=== PATIENT | male | born 1975 | race Caucasian/White ===

== ENCOUNTER 2022-03-19 11:14 | Outpatient (CLI) | payer OTHER ==
[2022-03-19 13:39] LABS: #Eosinphils 0.1 10x3/uL (0.0-0.5); #Monocytes 0.5 10x3/uL (0.0-1.1); #Neutrophils 2.3 10x3/uL (1.5-8.4); %Basophils 0.5 % (0.0-2.0); %Eosinophils 2.3 % (0.0-6.0); %Lymphocytes 28.5 % (18.0-47.0); %Monocytes 11.4 % (0.0-10.0); Hemoglobin 13.9 g/dL (13.5-17.5); Mean Corpuscular HGB CONC 34.8 g/dL (32.0-36.0); Mean Corpuscular Hemoglobin 31.5 pg (27.0-33.0); Mean Corpuscular Volume 90.7 fl (81.2-95.1); Mean Platelet Volume 10.1 fl (7.4-10.4); Platelet Count 299 10x3/uL (150-450); RBC Distribution Width 12.4 % (11.5-14.5); Red Blood Cell (RBC) Count 4.41 10x6/uL (4.32-5.72)
[2022-03-19 14:14] LABS: Anion Gap 12 mmol/L (10-20); BUN (Urea Nitrogen) 10 mg/dL (8.9-20.6); Calc. Creatinine Clearance 0 mL/min (70-130); Carbon Dioxide 28 mmol/L (22-29); Chloride 105 mmol/L (98-107); Estimated GFR 107; Glucose 89 mg/dL (70-105); Potassium 4.2 mmol/L (3.5-5.1); Sodium 141 mmol/L (136-145)
== END 2022-03-19 11:15 | disposition home or self-care (01) ==
LOC: LABBT 11:14
PROVIDERS: ATTEND Orthopaedic Surgery
DX: Z01.812 Encounter for preprocedural laboratory examination (principal); T84.89XA Other specified complication of internal orthopedic prosthetic devices, implants and grafts, initial encounter; S83.242A Other tear of medial meniscus, current injury, left knee, initial encounter
CPT/HCPCS: 80048; 85025

== ENCOUNTER 2022-03-24 06:44 | Day surgery (SDC) | payer OTHER ==
[2022-03-23 08:53] VITALS: BMI 28.9
[2022-03-24] MEDS ORDERED: PROPOFOL 20 ML ONE (07:52)
[2022-03-24] MEDS ORDERED: Bupivacaine PF 0.5% 30 ML VIAL ONE (07:52)
[2022-03-24] MEDS ORDERED: Lidocaine 2% PF 5 ML VIAL ONE (07:53)
[2022-03-24] MEDS ORDERED: Fentanyl 100 MCG/2 ML VIAL ONE (08:58)
[2022-03-24] MEDS ORDERED: CEFAZOLIN 2 GM VIAL ONE (09:14)
[2022-03-24] MEDS ORDERED: Sodium Chloride 0.9% 100 ML ONE (09:14)
[2022-03-24] MEDS ORDERED: Lidocaine 1% PF 5 ML VIAL ONE (09:29)
[2022-03-24] MEDS ORDERED: Ondansetron PF 4 MG/2 ML Vial ONE (09:29)
[2022-03-24] MEDS ORDERED: Dexamethasone 20 MG/5 ML VIAL ONE (09:29)
[2022-03-24] MEDS ORDERED: PROPOFOL 200 MG/20 ML VIAL ONE (09:29)
== END 2022-03-24 12:30 | disposition home or self-care (01) ==
LOC: SDC 06:44
PROVIDERS: ATTEND Orthopaedic Surgery
DX: S83.242A Other tear of medial meniscus, current injury, left knee, initial encounter (principal); S83.272A Complex tear of lateral meniscus, current injury, left knee, initial encounter; M23.42 Loose body in knee, left knee; M23.8X2 Other internal derangements of left knee; G89.29 Other chronic pain; M54.50 Low back pain, unspecified; Z86.718 Personal history of other venous thrombosis and embolism; Z87.891 Personal history of nicotine dependence; Z88.4 Allergy status to anesthetic agent; Z98.890 Other specified postprocedural states
CPT/HCPCS: J1100; J2001; J2405; J2704; J3010; J3490; S0020